=== PATIENT | female | born 1965 | race Caucasian/White ===

== ENCOUNTER 2017-06-15 09:29 | Day surgery (SDC) | payer BC ==
--- NOTE | 2017-06-15 11:36 | Operative Note ---
Colonoscopy (Alejandro) Procedure date: 06/15/17 Date of : 69 Procedure:Colonoscopy Colonoscopy with cold snare polypectomy Indications: Mrs. Hernández is a 52-year-old female who is here for initial screening colonoscopy. She reports no abdominal pain, weight loss, change in her bowel habits or family history of colon cancer. She has some occasional spotting of blood on the tissue from internal hemorrhoids. Performing Provider: Luis Carlos Allen MD Referrring Provider: Jean Paul Lyons M.D./Rohan Hernandez M.D. Sedation: Fentanyl 125 mg IV/Versed 5 mg IV Procedure: Prior to the procedure, a history and physical exam was performed, and patient medications and allergies were reviewed. The risks and benefits of the procedure and the sedation options and risks were discussed with the patient. All questions were answered and informed consent was obtained. Patient identification and proposed procedure were verified by the physician and the nurse. The patient was placed in a left lateral decubitus position. Throughout the procedure, the patient's blood pressure, pulse, and oxygen saturations were monitored continuously. Findings: On digital rectal examination there was normal rectal tone. There were no external hemorrhoids. The colonoscope was introduced through the anal canal to the rectum and advanced to the cecum. The ileocecal valve and appendiceal orifice were identified. The scope was advanced a short distance into the ileum which appeared grossly normal. The scope was then withdrawn into the colon. The cecum, ascending, transverse, descending, sigmoid and rectum were grossly normal. There was a single 6 mm sigmoid polyp removed via cold snare polypectomy.There were no other mucosal abnormalities identified. Upon retroflexion within the rectum there were grade 1-2 internal hemorrhoids. Impressions: 1. Sigmoid colon polyp 2. Grade 1-2 internal hemorrhoids Recommendations: I will follow up the polyp pathology and recommend repeat colonoscopy again in 5 -10 years based upon the polyp histology. I would encourage fiber supplementation on a long-term daily maintenance basis. Complications: None EBL (ml): 0 at [id number]
[2017-06-15 13:59] VITALS: BP 112/56
== END 2017-06-15 12:29 | disposition home or self-care (01) ==
LOC: SDC 09:29
PROVIDERS: Internal Medicine Gastroenterology
PROC: 0DBN8ZX Excision of Sigmoid Colon, Via Natural or Artificial Opening Endoscopic, Diagnostic (ICD-10-PCS; principal; 2017-06-15 10:30)
DX: Z12.11 Encounter for screening for malignant neoplasm of colon (principal); K63.5 Polyp of colon; K64.0 First degree hemorrhoids